=== PATIENT | female | born 1985 | race Two or more races ===

== ENCOUNTER 2022-01-15 18:20 | Emergency (ER) | payer OTHER, SELFPAY ==
[2022-01-15] MEDS ORDERED: Ketorolac Tromethamine 30 MG/ML VIAL ONE (18:32)
[2022-01-15] MEDS ORDERED: Boostrix 0.5 ML (Tdap) VIAL ONE (18:49)
== END 2022-01-15 18:55 | disposition home or self-care (01) ==
LOC: ERS 18:20
DX: S20.212A Contusion of left front wall of thorax, initial encounter (principal); V89.2XXA Person injured in unspecified motor-vehicle accident, traffic, initial encounter
CPT/HCPCS: 71045; 90471; 90715; 96372; J1885